=== PATIENT | male | born 1950 | race Caucasian/White ===

== ENCOUNTER → 2019-03-07 12:51 | Outpatient (CLI) | payer MEDICARE, SELFPAY ==
--- NOTE | 2019-03-07 13:08 | DI.CT.S_ITS ---
PROCEDURE: CT KIDNEY URETER BLADDER (KUB) INDICATIONS: Calculus of kidney TECHNIQUE: Noncontrast 5 mm thick sections acquired from the diaphragms to the symphysis. 5 mm thick coronal and sagittal reformats were then performed. For radiation dose reduction, the following was used: automated exposure control, adjustment of mA and/or kV according to patient size. COMPARISON: [facility], CT, CT KUB, 04/08/2018, 15:18. FINDINGS: Image quality: Excellent. Lung bases: Lung bases are clear. Heart size is normal. Urinary system: Both kidneys are normal in size. There are small, 2 mm diameter nonobstructing calcifications within the interpole right kidney, the inferior pole left kidney, and within the superior pole left kidney. This is increased from the prior examination. No hydronephrosis or perinephric fat stranding. No right ureteral caculus. Mild left distal ureteral dilatation. Bladder wall thickness is normal. Small left posterior urinary bladder calculus. Other solid organs: Liver is normal in size. Gallbladder is within normal limits. Pancreas is normal in contours. Spleen is normal in size. No right adrenal nodules. No change in low density left adrenal nodule. Peritoneum and bowel: Unenhanced bowel loops demonstrate normal wall thickness and caliber. No free fluid or air. There is new high density material within the appendix, which is moderately distended, as before, measuring 11 mm short axis but demonstrates no surrounding fat stranding. Nodes and vessels: No retroperitoneal or mesenteric adenopathy by size criteria. Aorta and inferior vena cava are normal in caliber. Abdominal wall: No ventral hernias. Pelvis: No free pelvic fluid. No inguinal hernias or adenopathy. Bones: No suspicious bony lesions. No vertebral body compression fractures. IMPRESSION: 1. Small nonobstructing bilateral renal calculi. 2. Small distal left ureteral calculus with mild distal left ureteral dilatation. 3. Small left urinary bladder calculus. 4. Prominent size of appendix as before without appendicitis. 5. No change in left adrenal adenoma. Dictated by: Margarita Rosas M.D. on 03/07/2019 at 13:58 Approved by: Margarita Rosas M.D. on 03/07/2019 at 14:31
== END ==
PROVIDERS: Visit Provider Urology
DX: N20.2 Calculus of kidney with calculus of ureter (principal); N21.0 Calculus in bladder
CPT/HCPCS: 74176

== ENCOUNTER → 2022-01-09 15:40 | Outpatient (CLI) | payer MEDICARE, SELFPAY ==
--- NOTE | 2022-01-09 15:44 | DI.US.S_ITS ---
PROCEDURE: US PERIPH VENOUS LOW EXTREM RT INDICATIONS: KNEE PAIN TECHNIQUE: Real-time imaging, as well as color and pulse Doppler interrogation, were performed of the lower extremity deep veins from the inguinal ligament to the popliteal fossa. COMPARISON: [facility] [place], CR, XR KNEE 4+ VIEWS RIGHT, 09/26/2021, 13:48. FINDINGS: The common femoral, femoral and popliteal veins are normally compressible, and free of intraluminal thrombus. Color and pulse Doppler demonstrate normal phasic intraluminal flow. There is normal augmentation response to distal compression maneuver. IMPRESSION: Negative for deep venous thrombosis. Dictated by: Alex El M.D. on 01/09/2022 at 15:31 Approved by: Alex El M.D. on 01/09/2022 at 15:32
== END ==
PROVIDERS: PCP Family Medicine; Referring Provider Orthopaedic Surgery; Visit Provider Orthopaedic Surgery
DX: M25.561 Pain in right knee (principal)
CPT/HCPCS: 93971

== ENCOUNTER 2022-09-02 00:13 | Emergency (ER) | payer MEDICARE, SELFPAY ==
[2022-09-02 00:21] VITALS: BP 186/91; PULSE 74; RESP 15; TEMP 36.9; O2SAT 97; BMI 25.0
--- NOTE | 2022-09-02 00:25 | DI.RAD.S_ITS ---
PROCEDURE: XR FINGER RT MIN 2V INDICATIONS: cut finger with hedgetrimmer TECHNIQUE: AP hand, 2 views of the 4th finger(s) acquired. COMPARISON: None. FINDINGS: Bones: No fractures or dislocations. No suspicious bony lesions. Soft tissues: No suspicious soft tissue calcifications. No radiopaque foreign body. Bandages overlying the 4th digit. IMPRESSION: No acute osseous abnormality. No radiopaque foreign body. Dictated by: Andrew Iraheta M.D. on 09/02/2022 at 0:37 Approved by: Andrew Iraheta M.D. on 09/02/2022 at 0:38
[2022-09-02] MEDS: TET,DIPH,PERTUSS(ACELL),VAC/PF 0.5 ML SYRINGE IM (01:01)
--- NOTE | 2022-09-02 02:00 | ED.WOUNDLAC ---
HPI - Wound/Laceration General Chief Complaint: Wound/Laceration Stated Complaint: rt. hand ring finger laceration Time Seen by Provider: 09/02/22 01:59 Source: patient Mode of arrival: Ambulatory History of Present Illness HPI narrative: This is a 72-year-old male with history of hypertension who presents with complaint of laceration to the 4th digit on his right hand. Patient had a hedge clipper he had not been actively using it but it fell down words and he tried to catch it with his hand. Patient did not sustain injuries to any other areas. He denies any numbness, tingling or weakness he has full range of motion. Unsure of last tetanus. Denies any drug allergies. Related Data Previous Rx's Medication Instructions Recorded cephalexin 500 mg capsule 500 mg PO Q6H #20 caps 09/02/22 Allergies Allergy/AdvReac Type Severity Reaction Status Date / Time No Known Drug Allergies Allergy Verified 09/02/22 00:20 Review of Systems Review of Systems ROS Unobtainable: All systems reviewed & are unremarkable except as noted in HPI and below Patient History Social History Smoking Status: Never smoker Smoking Status: Never smoker alcohol intake frequency: a few times a week Alcohol type: wine Substance Use Type: does not use Exam Narrative Exam Narrative: GENERAL: Alert and oriented x three, male in mild distress. HEENT: Head normocephalic, atraumatic, EOMI, pupils reactive, face symmetric, moist mucous membranes NECK: Supple, full range of motion EXTREMITIES: Normal range of motion, no clubbing or edema. Neurovascularly intact. Patient has a stellate laceration running from just distal to the distal interphalangeal joint to just proximal to the proximal interphalangeal joint. It is on the palmar side, it is flat into the subcutaneous with quite a bit of gapping but does not appear to be through and through no bony exposure, tendons are not visualized. Patient has full range of motion with flexion extension, adduction and abduction. He has sensation to touch throughout the finger with cap refill less than 2 seconds. There is no nail involvement. Laceration does not extend into the palm. No other lacerations or injuries to the other digits noted. NEUROLOGICAL: Cranial nerves II through XII grossly intact. Moving all extremities SKIN: Warm, dry, no petechiae, no rashes or lesions. Initial Vital Signs Initial Vital Signs: Vital Signs Temperature 98.4 F 09/02/22 00:21 Pulse Rate 74 09/02/22 00:21 Respiratory Rate 15 09/02/22 00:21 Blood Pressure 186/91 H 09/02/22 00:21 Pulse Oximetry 97 09/02/22 00:21 Oxygen Delivery Method Room Air 09/02/22 00:21 Procedures Laceration Repair Laceration 1: Site: hand (4th finger right) Size (cm): 5 Description: stellate and irregular Depth: simple, single layer and involves muscle layer Local Anesthetic: lidocaine 2% (digital block with good anesthesia to the finger. ) Amount of anesthesia used (mL): 5 Pre-repair: wound explored, irrigated extensively and deep structures intact Skin layer closed with: nylon Skin layer suture size: 5-0 Number of sutures: 13 Technique: simple, interrupted Nerve Block Nerve Block 1: Time out performed: Yes Local Anesthetic: lidocaine 2% Amount of anesthesia used (mL): 5 Side: right Nerve Blocks: digital (4th digit, right hand) Procedure Successful: Yes Patient Tolerated Procedure: Well and No complications Complications: none Course Orders Ordered: ED Orders 09/02/22 00:25 XR finger RT min 2V Stat Discontinued Medications Hydrocodone Bitart/Acetaminophen (Hydrocodone/Acet 5/325 Prepack) 1 bottle MISC SEEINSTR ONE Stop: 09/02/22 02:58 Last Admin: 09/02/22 03:07 Dose: 1 bottle Documented By: ALANNAH Cephalexin HCl (Cephalexin 250 Mg Capsule) 500 mg PO NOW ONE Stop: 09/02/22 02:58 Last Admin: 09/02/22 03:06 Dose: 500 mg Documented By: ALANNAH Diphtheria/Tetanus/Acell Pertussis (Tet,Diph,Pertuss(Acell),Vac/Pf 0.5 Ml Syringe) 0.5 ml IM .ONCE ONE Stop: 09/02/22 00:53 Last Admin: 09/02/22 01:01 Dose: 0.5 ml Documented By: JEFFERY Lidocaine HCl (Lidocaine 2% Inj Sdv 5ml) 5 ml INJ INTRA-OP ONE Stop: 09/02/22 02:16 Last Admin: 09/02/22 02:36 Dose: 5 ml Documented By: HNG Vital Signs Vital signs: Vital Signs - 8 hr 09/02/22 00:21 09/02/22 03:10 Temperature 98.4 F Pulse Rate 74 82 Respiratory Rate 15 16 Blood Pressure 186/91 H 165/84 H Pulse Oximetry 97 97 Oxygen Delivery Method Room Air Room Air MDM - Wound/Laceration Imaging Data Extremity x-ray #1: Radiologist's Impression: [address] [address] XRay Report Signed Patient: Micheal Aleman MR#: [id number] : 1950 Acct:[id number] Age/Sex: 72 / M Date of Service: 09/02/22 Loc: ED Accession Number: [id number] ?? Procedure: XR finger RT min 2V Ordering Provider: Deandra Barron D.O. PROCEDURE:? XR FINGER RT MIN 2V ? INDICATIONS:? cut finger with hedgetrimmer ? TECHNIQUE:? AP hand, 2 views of the 4th finger(s) acquired.? ? COMPARISON:? None. ? FINDINGS:? ? Bones:? No fractures or dislocations.? No suspicious bony lesions.? ? Soft tissues:? No suspicious soft tissue calcifications.? No radiopaque foreign body.? Bandages overlying the 4th digit.? ? IMPRESSION:? No acute osseous abnormality. No radiopaque foreign body.? ? Dictated by: Andrew Iraheta M.D. on 09/02/2022 at 0:37 ? ? Approved by: Andrew Iraheta M.D. on 09/02/2022 at 0:38?? [facility] Narrative Medical decision making narrative: This is a 72-year-old right-hand dominant male with stellate laceration into the subcutaneous tissue of the 4th digit of his right hand. Appears fairly clean was numbed with a digital block, irrigated extensively. Sutured closed with 13 sutures patient was neurovascularly intact and had good range of motion, no visualized bony or tendon involvement patient had good movement. Patient tolerated procedure well. Was given prescription had numerous appeared clean but based on their function was felt appropriate to cover. X-ray was obtained no bony involvement appreciated. Return precautions discussed with patient. Patient placed with splint to prevent sutures from tearing from hyperextension. Discharge Plan Departure Patient Disposition: Home Clinical Impression: Laceration of finger of right hand Qualifiers: Encounter type: initial encounter Finger: ring finger Damage to nail status: without damage Foreign body presence: without foreign body Qualified Code(s): S61.214A - Laceration without foreign body of right ring finger without damage to nail, initial encounter Instructions: DI for Laceration Repair Activity Restrictions/Additional Instructions: Follow-up in 7-10 days for removal of your sutures, he can follow up with primary care, urgent care or in the emergency department Take antibiotics until completely gone. Prescription sent to [facility] in [place]. Wear the splint to remind you not to move your finger too far while it is healing you can remove this to wash it or when not active You may take 1 tablet of [place] every 6 hours as needed for pain. This medication can make you sleepy do not drive, perform hazardous activities or make any major decisions while taking it. This medication will make you constipated please take a stool softener once to twice daily until stools are soft and regular. Wound Care: Keep wound(s) clean and dry. Wash daily with soap and water only. Do not use over the counter products (alcohol or peroxide)on the wounds unless instructed by a physician. You can use a topical triple antibiotic ointment 2-3 times daily. If wound condition worsens (increased/expanding redness, developing fluid blisters, or worsening pain), either contact your doctor for an urgent re-assessment , or return to the Emergency Department. Return to the Emergency Department for any new or worsening symptoms. Return if fever greater than 100.4 Fahrenheit, increased swelling, increasing pain or worsening symptoms such as increased discharge or spreading redness. Prescriptions: New cephalexin 500 mg capsule 500 mg PO Q6H Qty: 20 0RF Referrals: Soniya Underwood MD [Primary Care Provider] - Stand Alone Forms: Patient Portal/API
[2022-09-02] MEDS: LIDOCAINE 2% INJ SDV 5ML 5 ML INJ (02:36)
[2022-09-02] MEDS: cephALEXin 250 MG CAPSULE 500 MG PO (03:06)
[2022-09-02] MEDS: HYDROCODONE/ACET 5/325 PREPACK 1 BOTTLE MISC (03:07)
[2022-09-02 03:10] VITALS: BP 165/84; PULSE 82; RESP 16; O2SAT 97
== END 2022-09-02 03:29 | disposition home or self-care (01) ==
PROVIDERS: Emergency Provider Emergency Medicine; PCP Family Medicine
DX: S61.214A Laceration without foreign body of right ring finger without damage to nail, initial encounter (principal); W29.3XXA Contact with powered garden and outdoor hand tools and machinery, initial encounter; Z23 Encounter for immunization
CPT/HCPCS: 13132; 29130; 64450; 73140; 90471; 99283; 99284; 90715

== ENCOUNTER 2022-09-04 16:17 | Emergency (ER) | payer MEDICARE, SELFPAY ==
[2022-09-04 16:25] VITALS: BP 164/83; PULSE 73; RESP 16; TEMP 36.6; O2SAT 96; BMI 25.0
--- NOTE | 2022-09-04 18:42 | ED_ITS ---
HPI - Skin/Abscess/Foreign Bdy <Domingo Ledesma PA-C - Last Filed: 09/04/22 18:50> General Chief complaint: Skin/Abscess/Foreign Body Stated complaint: RT HAND INJURY POST VISIT NOT HEALING RIGHT Time Seen by Provider: 09/04/22 16:38 Source: patient Mode of arrival: Ambulatory History of Present Illness HPI narrative: 72-year-old male presents to the ED for a wound recheck. Patient sustained a laceration to his right 4th finger on 09/02/2022, laceration was sutured in the ED on the same day. Patient came into the ED today due to concern for possible infection. Patient denies worsening pain, swelling, discharge, warmth, erythema. Patient has full range of motion. Denies numbness, tingling, weakness. Related Data Previous Rx's Medication Instructions Recorded cephalexin 500 mg capsule 500 mg PO Q6H #20 caps 09/02/22 Allergies Allergy/AdvReac Type Severity Reaction Status Date / Time No Known Drug Allergies Allergy Verified 09/02/22 00:20 Review of Systems <Domingo Ledesma PA-C - Last Filed: 09/04/22 18:50> Review of Systems ROS Unobtainable: All systems reviewed & are unremarkable except as noted in HPI and below Constitutional Constitutional: Denies chills, Denies fatigue, Denies fever(s), Denies frequent falls, Denies lethargy and Denies weakness Eyes Eyes: Denies change in vision, Denies eye discharge, Denies irritation and Denies loss of vision ENT Ears, Nose, Mouth, and Throat: Denies change in voice, Denies dizziness, Denies neck pain, Denies sore throat and Denies throat swelling Cardiovascular Cardiovascular: Denies chest pain, Denies irregular heart rhythm, Denies lightheadedness, Denies palpitations, Denies dyspnea, Denies dyspnea on exertion and Denies orthopnea Respiratory Respiratory: Denies cough, Denies dyspnea, Denies dyspnea on exertion and Denies wheezing Gastrointestinal Gastrointestinal: Denies abdominal pain, Denies change in bowel habits, Denies diarrhea, Denies nausea and Denies vomiting Genitourinary Genitourinary: Denies hematuria, Denies flank pain, Denies urinary incontinence and Denies urinary urgency Musculoskeletal Musculoskeletal: Denies back pain, Denies muscle weakness, Denies neck pain, Denies numbness and Denies tingling Integumentary/Breasts Skin/Breast: Denies pruritus, Denies erythema, Denies rash and Reports wounds Neurologic Neurologic: Denies behavioral changes, Denies confusion, Denies dizziness, Denies frequent falls, Denies loss of vision, Denies numbness, Denies tingling and Denies weakness Psychiatric Psychiatric: Denies anxiety, Denies behavioral changes, Denies confusion, Denies depression, Denies homicidal ideation and Denies suicidal ideation Endocrine Endocrine: Denies fatigue, Denies flushing and Denies palpitations Hematologic/Lymphatic Hematologic/Lymphatic: Denies easy bruising Allergic/Immunologic Allergic/Immunologic: Denies urticaria, Denies throat swelling and Denies wheezing Patient History <Domingo Ledesma PA-C - Last Filed: 09/04/22 18:50> Social History Smoking Status: Never smoker Smoking Status: Never smoker alcohol intake frequency: a few times a week Alcohol type: wine Substance Use Type: does not use Exam <Domingo Ledesma PA-C - Last Filed: 09/04/22 18:50> Narrative Exam Narrative: Const General:?cooperative, healthy appearing and comfortable [facility] Head:?normal to inspection Ears:?hearing grossly normal bilaterally Nose:?external nose normal Face and sinus:?normal facial exam and sinuses nontender Mouth:?oral mucosae normal Throat:?posterior oropharynx normal Eyes General:?appearance normal, both eyes and all related structures Neck Neck:?normal visual inspection and no lymphadenopathy noted Resp Effort & Inspection:?normal respiratory effort Auscultation:?clear to auscultation bilaterally Cardio Rate:?regular rate Rhythm:?regular rhythm Integumentary Laceration noted to the palmar aspect of the right 4th finger. All sutures seem to be intact. There is no signs of infection including erythema, discharge, swelling, warmth, tenderness. There is some maceration noted to wound edges, likely due to prolonged moisture. There is full range of motion. Strength and sensation is intact. Patient is neurovascularly intact. Neuro General:?patient alert, patient awake and patient oriented x3 Initial Vital Signs Initial Vital Signs: Vital Signs Temperature 97.8 F 09/04/22 16:25 Pulse Rate 73 09/04/22 16:25 Respiratory Rate 16 09/04/22 16:25 Blood Pressure 164/83 H 09/04/22 16:25 Pulse Oximetry 96 09/04/22 16:25 Oxygen Delivery Method Room Air 09/04/22 16:25 <DO Bull Chavez Last Filed: 09/04/22 18:53> Initial Vital Signs Initial Vital Signs: Vital Signs Temperature 97.8 F 09/04/22 16:25 Pulse Rate 73 09/04/22 16:25 Respiratory Rate 16 09/04/22 16:25 Blood Pressure 164/83 H 09/04/22 16:25 Pulse Oximetry 96 09/04/22 16:25 Oxygen Delivery Method Room Air 09/04/22 16:25 Course <Domingo Ledesma PA-C - Last Filed: 09/04/22 18:50> Vital Signs Vital signs: Vital Signs - 8 hr 09/04/22 16:25 Temperature 97.8 F Pulse Rate 73 Respiratory Rate 16 Blood Pressure 164/83 H Pulse Oximetry 96 Oxygen Delivery Method Room Air <DO Bull Chavez Last Filed: 09/04/22 18:53> Vital Signs Vital signs: Vital Signs - 8 hr 09/04/22 16:25 Temperature 97.8 F Pulse Rate 73 Respiratory Rate 16 Blood Pressure 164/83 H Pulse Oximetry 96 Oxygen Delivery Method Room Air MDM - Skin/Abscess/Foreign Bdy <BRIGITTE Gaston Last Filed: 09/04/22 18:50> MDM Narrative Medical decision making narrative: 72-year-old male presents to the ED for a wound recheck. On physical exam, there is some maceration to the wound due to possible prolonged moisture exposure. There is no erythema, discharge, warmth, swelling, tenderness. Discussed findings, discussed keeping the wound clean an uncovered, making sure that the wound is well dried with a cold her clothes drier repairer after he wets it. Patient agrees to return to the ED if he notes any signs of infection. Patient agrees to get sutures removed in the 10-14 day timeframe either by his PCP, urgent care, or the ED. Discharge Plan Departure Patient Disposition: Home Clinical Impression: Laceration re-check Instructions: DI for Laceration Repair Activity Restrictions/Additional Instructions: You were evaluated in the ED today to recheck your finger laceration. Your laceration does not appear to be infected at this time, however it does appear to have been exposed to moisture which is causing some of the skin around the laceration to appear white and macerated. Please keep your wound dry an uncovered for the next few days until it heals well. Please complete the antibiotics as prescribed for you. Return to the ED if you note any discharge, swelling, worsening pain, redness at the site of the injury. Prescriptions: No Action cephalexin 500 mg capsule 500 mg PO Q6H Qty: 20 0RF Referrals: Nola Underwood MD [Primary Care Provider] - Stand Alone Forms: Patient Portal/API <Yousif Saravia DO - Last Filed: 09/04/22 18:53> Cosign ED Attending Cosignature Attestation: Dr Saravia Co-Sign Statement: I was available for consultation during this patient's emergency department visit. This chart is signed by myself for administrative purposes only. I did not have direct contact with this patient during this visit. They were seen independently by the APC.
== END 2022-09-04 16:55 | disposition home or self-care (01) ==
PROVIDERS: Emergency Provider Student in an Organized Health Care Education/Training Program; PCP Internal Medicine Geriatric Medicine
DX: S61.214D Laceration without foreign body of right ring finger without damage to nail, subsequent encounter (principal)
CPT/HCPCS: 99281

== ENCOUNTER → 2023-05-04 12:01 | Outpatient (CLI) | payer MEDICARE, SELFPAY ==
--- NOTE | 2023-05-04 | DI.CT.S_ITS ---
PROCEDURE: CT KIDNEY URETER BLADDER (KUB) INDICATIONS: Left lower quadrant pain TECHNIQUE: Axial sections were acquired from the lung bases to the pubic symphysis. Coronal and sagittal reformats were performed. For radiation dose reduction, the following was used: automated exposure control, adjustment of mA and/or kV according to patient size. COMPARISON: [facility], CT, CT KIDNEY URETER BLADDER (KUB), 03/07/2019, 13:02. FINDINGS: Image quality: Excellent. Lung bases: Unremarkable. Heart: No significant findings. URINARY: Right Kidney: There is a nonobstructing 4 mm calculus in the lower pole of the right kidney. Right Ureter: No hydroureter or ureterolithiasis. Left Kidney: There is moderate left hydronephrosis. No left nephrolithiasis. Left Ureter: The superior left ureter is dilated. There is a 5 mm calculus in the upper left ureter which measures 863 Hounsfield units in density. The downstream ureter is decompressed. Bladder: Normal wall thickness. No stones. ABDOMEN: Liver: No contour-deforming solid mass. Gallbladder: Unremarkable. Biliary ducts: No biliary dilation. Pancreas: No ductal dilation. Spleen: Size is within normal limits. Adrenal Glands: No adrenal nodules. Stomach and Bowel: Normal colonic caliber, without significant wall thickening. There are scattered sigmoid diverticula. No evidence for diverticulitis. The appendix is not visualized; however there is no discrete right lower quadrant fluid or fat stranding to suggest acute appendicitis. Peritoneum: No abnormal intraperitoneal fluid. No free air. Ventral Wall: No hernia. Abdominal Nodes: No enlarged retroperitoneal or mesenteric lymph nodes. Vessels: Aorta and inferior vena cava are normal in size. PELVIS: Pelvic Organs: Unremarkable. Pelvic Nodes: Unremarkable. Miscellaneous: There is a small fat containing left inguinal hernia. Bones: Unremarkable. IMPRESSION: 1. Obstructing left ureterolithiasis with moderate left hydroureter and hydronephrosis. 2. Nonobstructing right nephrolithiasis. 3. Diverticulosis. No acute diverticulitis. Dictated by: Adela Armtsrong M.D. on 05/04/2023 at 15:15 Approved by: Adela Armstrong M.D. on 05/04/2023 at 15:20
== END ==
PROVIDERS: PCP Internal Medicine Geriatric Medicine; Referring Provider Urology; Visit Provider Urology
DX: K57.30 Diverticulosis of large intestine without perforation or abscess without bleeding (principal); N13.2 Hydronephrosis with renal and ureteral calculous obstruction; R10.32 Left lower quadrant pain
CPT/HCPCS: 74176